=== PATIENT | male | born 1990 | race Hispanic/Latino ===

== ENCOUNTER 2020-07-02 07:54 | Emergency (ER) | payer BC ==
--- NOTE | 2020-07-02 08:12 | EDPHYS ---
Physician Documentation [facility] Name: Devyn Strickland Jr Age: 29 yrs Sex: Male : 1990 Arrival Date: 07/02/2020 Time: 07:58 Bed 5 Private MD: ED Physician Erick Butts HPI: 07/02 15:38 This 29 yrs old Male presents to ER via Ambulatory with complaints of Hand tw4 Pain. 15:38 The patient or guardian reports pain. The complaints affect the right hand diffusely. tw4 Context: The problem was sustained. Onset: The symptoms/episode began/occurred today. Modifying factors: The symptoms are alleviated by nothing, the symptoms are aggravated by nothing. The patient has not experienced similar symptoms in the past. Historical: - Allergies: 08:04 No Known Allergies; hb - Home Meds: 08:04 None [Active]; hb - PMHx: 08:04 None; hb - PSHx: 08:04 None; hb - Immunization history:: Adult Immunizations up to date. - Social history:: Smoking status: Patient reports the use of cigarette tobacco products, denies chronic smoking, but will smoke occasionally. ROS: 15:38 Constitutional: Negative for fever, chills, and weight loss, Eyes: Negative for injury, tw4 pain, redness, and discharge, Cardiovascular: Negative for chest pain, palpitations, and edema, Respiratory: Negative for shortness of breath, cough, wheezing, and pleuritic chest pain, Abdomen/GI: Negative for abdominal pain, nausea, vomiting, diarrhea, and constipation, Back: Negative for injury and pain, Skin: Negative for injury, rash, and discoloration, Neuro: Negative for headache, weakness, numbness, tingling, and seizure. 15:38 MS/extremity: Positive for pain, tenderness. Exam: 15:38 Constitutional: This is a well developed, well nourished patient who is awake, alert, tw4 and in no acute distress. Head/Face: Normocephalic, atraumatic. Chest/axilla: Normal chest wall appearance and motion. Nontender with no deformity. No lesions are appreciated. Cardiovascular: Regular rate and rhythm with a normal S1 and S2. No gallops, murmurs, or rubs. Normal PMI, no JVD. No pulse deficits. Respiratory: Lungs have equal breath sounds bilaterally, clear to auscultation and percussion. No rales, rhonchi or wheezes noted. No increased work of breathing, no retractions or nasal flaring. Abdomen/GI: Soft, non-tender, with normal bowel sounds. No distension or tympany. No guarding or rebound. No evidence of tenderness throughout. Back: No spinal tenderness. No costovertebral tenderness. Full range of motion. Skin: Warm, dry with normal turgor. Normal color with no rashes, no lesions, and no evidence of cellulitis. Neuro: Awake and alert, GCS 15, oriented to person, place, time, and situation. Cranial nerves II-XII grossly intact. Motor strength 5/5 in all extremities. Sensory grossly intact. Cerebellar exam normal. Normal gait. 15:38 Musculoskeletal/extremity: Extremities: decreased ROM, pain, tenderness. Vital Signs: 08:03 BP 146 / 95; Pulse 71; Resp 16; Temp 97.2; Pulse Ox 100% ; Pain 0/10; hb MDM: 08:00 Patient medically screened. tw4 08:11 Medical screen evaluation completed. [facility] emergency medical condition absent. tw4 15:40 Data reviewed: vital signs, nurses notes. Data interpreted: Pulse oximetry: tw4 Interpretation: normal. Counseling: I had a detailed discussion with the patient and/or guardian regarding: the historical points, exam findings, and any diagnostic results supporting the discharge/admit diagnosis. Administered Medications: No medications were administered Disposition: 07/02/20 08:12 Discharged to Home. Impression: Carpal tunnel syndrome, right upper limb. - Condition is Stable. - Medication Reconciliation Form, Thank You Letter, Antibiotic Education, Prescription Opioid Use form. - Follow up: Private Physician; When: Upon discharge from the Emergency Department; Reason: Recheck today's complaints, Continuance of care, Re-evaluation by your physician. - Problem is an ongoing problem. - Symptoms are unchanged. Signatures: Teresa Neville RN RN hb Wadley, Terrence, MD MD tw4 Corrections: (The following items were deleted from the chart) 08:31 08:12 07/02/2020 08:12 Discharged to Home. Impression: Carpal tunnel syndrome, right hb upper limb. Condition is Stable. Forms are Medication Reconciliation Form, Thank You Letter, Antibiotic Education, Prescription Opioid Use. Follow up: Private Physician; When: Upon discharge from the Emergency Department; Reason: Recheck today's complaints, Continuance of care, Re-evaluation by your physician. Problem is an ongoing problem. Symptoms are unchanged. tw4
--- NOTE | 2020-07-02 08:12 | ER ---
Nurse's Notes [facility] Name: Devyn Strickland Jr Age: 29 yrs Sex: Male : 1990 Arrival Date: 07/02/2020 Time: 07:58 Bed 5 Private MD: Diagnosis: Carpal tunnel syndrome, right upper limb Presentation: 07/02 08:03 Chief complaint: Right hand pain x 1 year. Denies injury. Coronavirus screen: At this hb time, the client does not indicate any symptoms associated with coronavirus-19. Ebola Screen: No symptoms or risks identified at this time. Initial Sepsis Screen: Does the patient meet any 2 criteria? No. Patient's initial sepsis screen is negative. Does the patient have a suspected source of infection? No. Patient's initial sepsis screen is negative. Risk Assessment: Do you want to hurt yourself or someone else? Patient reports no desire to harm self or others. Onset of symptoms is unknown. 08:03 Method Of Arrival: Ambulatory hb 08:03 Acuity: [facility]SEM[facility] 4 hb Historical: - Allergies: 08:04 No Known Allergies; hb - Home Meds: 08:04 None [Active]; hb - PMHx: 08:04 None; hb - PSHx: 08:04 None; hb - Immunization history:: Adult Immunizations up to date. - Social history:: Smoking status: Patient reports the use of cigarette tobacco products, denies chronic smoking, but will smoke occasionally. Screenin:02 Abuse screen: Denies threats or abuse. Denies injuries from another. Nutritional ph screening: No deficits noted. Tuberculosis screening: No symptoms or risk factors identified. Fall Risk None identified. Assessment: 08:15 General: Appears in no apparent distress. comfortable, Behavior is calm, cooperative, ph appropriate for age, Denies fever. Pain: Complains of pain in right hand. Neuro: Level of Consciousness is awake, alert, obeys commands, Oriented to person, place, time, situation. Cardiovascular: Capillary refill < 3 seconds in bilateral fingers Patient's skin is warm and dry. Derm: Skin is intact, is healthy with good turgor, Skin is pink, warm \T\ dry. Musculoskeletal: Circulation, motion, and sensation intact. Range of motion: intact in all extremities, Swelling absent. Vital Signs: 08:03 BP 146 / 95; Pulse 71; Resp 16; Temp 97.2; Pulse Ox 100% ; Pain 0/10; hb ED Course: 07:58 Patient arrived in ED. rg4 08:00 Erick Butts MD is Attending Physician. tw4 08:02 Hiwot Durham, RN is Primary Nurse. ph 08:02 Patient has correct armband on for positive identification. Placed in gown. Bed in low ph position. Call light in reach. Pulse ox on. NIBP on. Door closed. Noise minimized. 08:03 Arm band placed on Patient placed in an exam room, on a stretcher. ph 08:04 Triage completed. hb 08:15 No provider procedures requiring assistance completed. Patient did not have IV access ph during this emergency room visit. Administered Medications: No medications were administered Outcome: 08:12 Discharge ordered by . tw4 08:31 Patient left the ED. hb 08:31 Medical screen evaluation completed per provider. Patient declined treatment. ph 08:31 Condition: good Signatures: Hiwot Durham, RN RN Teresa Neville RN RN Michaela Tavarez rg4 Erick Butts MD MD tw4 Corrections: (The following items were deleted from the chart) 08:05 08:03 Chief complaint: Right hand pain x 1 year. hb hb
[2020-07-02 08:36] VITALS: BP 146/95; TEMP 97.2; O2SAT 100
== END 2020-07-02 08:31 | disposition home or self-care (01) ==
LOC: ER 07:54
DX: G56.01 Carpal tunnel syndrome, right upper limb (principal); F17.210 Nicotine dependence, cigarettes, uncomplicated
CPT/HCPCS: 99282